=== PATIENT | female | born 1965 | race Caucasian/White ===

== ENCOUNTER 2019-03-04 09:55 | Emergency (ER) | payer SELFPAY ==
[~2019-03-04] VITALS: Ht 167.6 cm; Wt 85.3 kg
[2019-03-04 10:01] VITALS: BP 130/75
[2019-03-04] MEDS ORDERED: IV NS 0.9% 500 ML BAG IV ONE (10:30)
--- NOTE | 2019-03-04 10:40 | NUR ---
Patient discharged to home in stable condition. Written and verbal after care instructions given. Patient verbalizes understanding of instruction.
== END 2019-03-04 10:40 | disposition home or self-care (01) ==
LOC: ER 09:59
DX: H72.91 Unspecified perforation of tympanic membrane, right ear (principal)
CPT/HCPCS: 99283; J7040